=== PATIENT | female | born 1995 | race Caucasian/White ===

== ENCOUNTER 2017-11-01 17:03 | Emergency (ER) | payer MEDICAID ==
[2017-11-01 18:58] LABS: ABSOLUTE EOSINOPHILS # (AUTO) 0.1 10^3/uL (0.0-0.6); ABSOLUTE LYMPHOCYTES (AUTO) 2.5 10^3/uL (0.5-4.7); ABSOLUTE NEUT (AUTO) 9.5 10^3/uL (1.7-8.2); BASOPHILS % (AUTO) 0.3 % (0-2); EOSINOPHILS % (AUTO) 0.8 % (0-6); HEMATOCRIT 39.3 % (36.0-47.0); HEMOGLOBIN 13.3 g/dL (12.0-15.5); LYMPHOCYTES % (AUTO) 19.1 % (13-45); MEAN CORPUSCULAR HEMOGLOBIN 28.8 pg (27.0-33.4); MEAN CORPUSCULAR HGB CONC 33.9 g/dL (32.0-36.0); MEAN CORPUSCULAR VOLUME 85 fl (80-97); MONOCYTES % (AUTO) 7.9 % (3-13); PLATELET COUNT 318 10^3/uL (150-450); RED BLOOD COUNT 4.62 10^6/uL (3.72-5.28); RED CELL DISTRIBUTION WIDTH 13.2 % (11.5-14.0); SEGMENTED NEUTROPHILS % (AUTO) 71.9 % (42-78); TOTAL CELLS COUNTED % (AUTO) 100 %; WHITE BLOOD COUNT 13.1 10^3/uL (4.0-10.5)
[2017-11-01 19:06] LABS: APPEARANCE,URINE CLOUDY; BILIRUBIN,URINE NEGATIVE (NEGATIVE); COLOR,URINE YELLOW; GLUCOSE, URINE NEGATIVE (NEGATIVE); KETONES,URINE 20 mg/dL (NEGATIVE); LEUKOCYTE ESTERASE,URINE LARGE (NEGATIVE); NITRITE,URINE NEGATIVE (NEGATIVE); PROTEIN,URINE 30 mg/dL (NEGATIVE); URINE SPECIFIC GRAVITY 1.021; UROBILINOGEN,URINE NEGATIVE mg/dL (<2.0)
[2017-11-01] MEDS ORDERED: NORMAL SALINE 1000 ML 1,000 ML IV ONE (19:24)
[2017-11-01] MEDS ORDERED: ONDANSETRON HCL INJ/PF 4 MG/2 ML SDV IV ONE (19:25)
[2017-11-01] MEDS ORDERED: MORPHINE SULFATE 10 MG/ML INJ IV ONE (19:25)
[2017-11-01 19:26] LABS: ALANINE AMINOTRANSFERASE 21 U/L (9-52); ALBUMIN 4.2 g/dL (3.5-5.0); ALKALINE PHOSPHATASE 71 U/L (38-126); ANION GAP 12 (5-19); ASPARTATE AMINO TRANSFERASE 19 U/L (14-36); BILIRUBIN,DIRECT 0.3 mg/dL (0.0-0.4); BILIRUBIN,TOTAL 0.3 mg/dL (0.2-1.3); BLOOD UREA NITROGEN 5 mg/dL (7-20); CALCIUM 9.3 mg/dL (8.4-10.2); CARBON DIOXIDE 25 mmol/L (22-30); CHLORIDE 105 mmol/L (98-107); GLUCOSE 81 mg/dL (75-110); LIPASE 51.9 U/L (23-300); POTASSIUM 3.9 mmol/L (3.6-5.0); SODIUM 142.3 mmol/L (137-145); TOTAL PROTEIN 7.1 g/dL (6.3-8.2)
[2017-11-01] MEDS ORDERED: CEFTRIAXONE 2 GM/D5W RTU 2 GM/50 ML RTUPB IV ONE (19:27)
--- NOTE | 2017-11-01 19:27 | ER Document Report ---
ED General - General Chief Complaint: Abdominal Pain Stated Complaint: ABDOMINAL PAIN Time Seen by Provider: 11/01/17 18:10 Mode of Arrival: Ambulatory Information source: Patient Notes: This is a 22-year-old female 0 presented to the emergency room with progressively worsening right-sided abdominal pain for the past week. Patient states that she does have a history of lap patricio and was usual state of health until about a week ago when she started developing right-sided abdominal pain which seems to be upper moving down to the right lower side. She has been nauseated but denies vomiting. She denies fever. TRAVEL OUTSIDE OF THE [place] IN LAST 30 DAYS: No - HPI Onset: Last week Onset/Duration: Gradual Quality of pain: Dull Severity: Moderate Pain Level: 2 Associated symptoms: denies: Chest pain, Chills, Fever, Shortness of breath Exacerbated by: Denies Relieved by: Denies Similar symptoms previously: No Recently seen / treated by doctor: No - Related Data Allergies/Adverse Reactions: No Known Allergies Allergy (Verified 11/01/17 17:05) Past Medical History - General Information source: Patient - Social History Smoking Status: Current Every Day Smoker Cigarette use (# per day): Yes - Half pack per day Chew tobacco use (# tins/day): No Frequency of alcohol use: None Drug Abuse: None Lives with: Family Family History: None Patient has suicidal ideation: No Patient has homicidal ideation: No - Past Medical History Cardiac Medical History: Reports: None Pulmonary Medical History: Reports: None EENT Medical History: Reports: None Neurological Medical History: Reports: None Endocrine Medical History: Reports: None Renal/ Medical History: Reports: None. Denies: Hx Peritoneal Dialysis Malignancy Medical History: Reports: None GI Medical History: Reports: None Musculoskeletal Medical History: Reports None Skin Medical History: Reports None Psychiatric Medical History: Reports: Hx Depression Past Surgical History: Reports: Hx Cholecystectomy, Hx Thyroid Surgery, Hx Tonsillectomy Review of Systems - Review of Systems Constitutional: denies: Chills, Fever EENT: No symptoms reported Cardiovascular: denies: Chest pain, Palpitations, Heart racing, Orthopnea Respiratory: denies: Cough, Hemoptysis, Short of breath Gastrointestinal: Abdominal pain, Nausea, Vomiting Female Genitourinary: denies: Heavy/abnormal periods, Irregular period Musculoskeletal: No symptoms reported Skin: No symptoms reported Hematologic/Lymphatic: No symptoms reported Neurological/Psychological: No symptoms reported Physical Exam - Vital signs Vitals: Temp Pulse Resp BP Pulse Ox 99.4 F 114 H 24 H 139/89 H 100 11/01/17 17:08 11/01/17 17:08 11/01/17 17:08 11/01/17 17:08 11/01/17 17:08 Notes: Physical exam: GENERAL:-year-old female, alert and oriented 3, complaining of abdominal pain. HEAD: Atraumatic, normocephalic. EYES: Pupils equal round and reactive to light, extraocular movements intact, sclera anicteric, conjunctiva are normal. ENT: TMs normal, nares patent, oropharynx clear without exudates. Moist mucous membranes. NECK: Normal range of motion, supple without obvious mass or JVD. LUNGS: Breath sounds clear to auscultation bilaterally and equal. No wheezes rales or rhonchi. HEART: Regular rate and rhythm without murmurs, rubs or gallops. ABDOMEN: Soft, normoactive bowel sounds. She does have significant tenderness to palpation in the right side and right lower quadrant. There is no rebound. There is no obvious masses. Pelvic exam: His vaginal discharge which was sent for study, there is significant cervical motion tenderness and right adnexal tenderness. EXTREMITIES: Normal range of motion, no pitting or edema. No clubbing or cyanosis. NEUROLOGICAL: Cranial nerves II through XII grossly intact. Normal speech, moving all extremities. PSYCH: Normal mood, normal affect. SKIN: Warm, Dry, normal turgor, no rashes or lesions noted. Course - Re-evaluation Re-evalutation: 11/02/17 02:59 Note: Patient was treated with IV fluids, IV ceftriaxone (2 g), IV pain medicine. CT of the abdomen showed a normal appendix. Pelvic ultrasound showed normal pathology. There is no evidence of abscess. Patient was feeling better and tolerating p.o. She did prefer to go home (I did offer admission to her). She was given doxycycline orally in the ER and I will send her home with pain medicine, nausea medicine and doxycycline. 11/02/17 03:00 - Vital Signs Vital signs: Temp Pulse Resp BP Pulse Ox 99.4 F 114 H 24 H 139/89 H 100 11/01/17 17:08 11/01/17 17:08 11/01/17 17:08 11/01/17 17:08 11/01/17 17:08 - Laboratory Result Diagrams: 11/01/17 18:25 11/01/17 18:25 Laboratory results interpreted by me: 11/01/17 11/01/17 11/01/17 18:25 18:25 18:25 WBC 13.1 H Absolute Neutrophils 9.5 H BUN 5 L Urine Protein 30 H Urine Ketones 20 H Urine Blood MODERATE H Ur Leukocyte Esterase LARGE H Chlamydia DNA (PCR) N.gonorrhoeae DNA (PCR) 11/01/17 20:52 WBC Absolute Neutrophils BUN Urine Protein Urine Ketones Urine Blood Ur Leukocyte Esterase Chlamydia DNA (PCR) DETECTED H N.gonorrhoeae DNA (PCR) DETECTED H - Diagnostic Test Radiology reviewed: Image reviewed, Reports reviewed - CT of the abdomen shows normal appendix. Pelvic ultrasound shows normal pelvic anatomy Discharge - Discharge Clinical Impression: PID Condition: Stable Disposition: HOME, SELF-CARE Instructions: Abdominal Pain ([facility]), Pelvic Inflammatory Disease ([facility]) Additional Instructions: As we discussed, your general cultures showed that you were positive for gonorrhea and chlamydia. He received IV ceftriaxone in the emergency room. I want you to take doxycycline for the next 2 weeks. Take the Zofran for nausea. Take the Vicodin for pain. You can take Advil/Motrin for pain as well. Rest, drink plenty of fluids, advance diet slowly. Return to the emergency room for worsening pain or any concerns or getting worse. Follow-up with your primary care doctor/family doctor or sr. manager corporate communications when back home after treatment for repeat cultures. Prescriptions: Hydrocodone/Acetaminophen [Clark 5-325 mg Tablet] 1 tab PO Q6HP PRN #25 tablet PRN Reason: Doxycycline Hyclate 100 mg PO BID #24 capsule Ondansetron HCl [Zofran 4 mg Tablet] 1 - 2 tab PO Q4H PRN #10 tablet PRN Reason:
[2017-11-01 21:35] LABS: BACTERIA (WET MOUNT) 4+ BACTERIA SEEN; EPITHELIALS (WET MOUNT) 3+ EPITHELIALS SEEN; RBCS (WET MOUNT) RARE RBCS SEEN; T.VAGINALIS (WET MOUNT) NO TRICHOMONAS SEEN; WBCS (WET MOUNT) 4+ WBCS SEEN; YEAST (WET MOUNT) NO YEAST SEEN
--- NOTE | 2017-11-01 21:57 | RADIOLOGY REPORT (SQ) ---
EXAM DESCRIPTION: CT ABD/PELVIS WITH IV ONLY COMPLETED DATE/TIME: 11/01/2017 9:43 pm REASON FOR STUDY: rlq pain COMPARISON: None. TECHNIQUE: CT scan of the abdomen and pelvis performed using helical scanning technique with dynamic intravenous contrast injection. No oral contrast. Images reviewed with lung, soft tissue, and bone windows. Reconstructed coronal and sagittal MPR images reviewed. Delayed images for evaluation of the urinary system also acquired. All images stored on PACS. All CT scanners at this facility use dose modulation, iterative reconstruction, and/or weight based d osing when appropriate to reduce radiation dose to as low as reasonably achievable (ALARA). [facility]: Dose Right [facility]: CareDose [facility]: Dose Right [facility]: Teradose 4D [facility]: WhereNet CONTRAST TYPE AND DOSE: 100 mL Omnipaque 350- low osmolar. RENAL FUNCTION: BUN 5 creatinine 0.61 RADIATION DOSE: . LIMITATIONS: None. FINDINGS: LOWER CHEST: No significant findings. No nodules or infiltrates. LIVER: Normal size. No masses. No dilated ducts. SPLEEN: Normal size. No focal lesions. PANCREAS: No masses. No significant calcifications. No adjacent inflammation or peripancreatic fluid collections. Pancreatic duct not dilated. GALLBLADDER: No identified stones by CT criteria. No inflammatory changes to suggest cholecystitis. ADRENAL GLANDS: No significant masses or asymmetry. RIGHT KIDNEY AND URETER: No solid masses. No significant calcifications. No hydronephrosis or hyd roureter. LEFT KIDNEY AND URETER: No solid masses. No significant calcifications. No hydronephrosis or hydr oureter. AORTA AND VESSELS: No aneurysm. No dissection. Renal arteries, SMA, celiac without stenosis. RETROPERITONEUM: No retroperitoneal adenopathy, hemorrhage or masses. BOWEL AND PERITONEAL CAVITY: No masses or inflammatory changes. No free fluid or peritoneal masses. APPENDIX: Normal. PELVIS: There appears to be a small ovarian cyst on each side. No free fluid in the pelvis. No mass es. Urinary bladder is normal. ABDOMINAL WALL: There is a prominent inguinal lymph node on the right. There is mild stranding in th e fat in the right groin. BONES: No significant or acute findings. OTHER: No other significant finding. IMPRESSION: 1. No acute findings in the abdomen or the pelvis. There does appear to be a small ova grazyna cyst on each side. 2. There is a prominent right inguinal node and there are mild inflammatory changes in the fat in th e right groin around this node. TECHNICAL DOCUMENTATION: JOB ID: [id number] Quality ID # [id number]: Final reports with documentation of one or more dose reduction techniques (e.g., Au tomated exposure control, adjustment of the mA and/or kV according to patient size, use of iterative reconstruction technique) 2010 [employer]- All Rights Reserved Reading location - IP/workstation name: [email or web address]
[2017-11-01] MEDS ORDERED: HYDROMORPHONE HCL INJ/PF 2 MG/ML AMPULE IV ONE (22:24)
[2017-11-01 23:01] LABS: CHLAM PCR DETECTED (NOT DETECT); GON PCR DETECTED (NOT DETECT)
--- NOTE | 2017-11-02 00:23 | RADIOLOGY REPORT (SQ) ---
EXAM DESCRIPTION: US TRANSVAGINAL COMPLETED DATE/TME: 11/01/2017 22:23 CLINICAL HISTORY: 22 years, Female, right pelvic pain COMPARISON: None. TECHNIQUE: Complete pelvic ultrasound with transvaginal imaging. Limited color and spectral Doppler imaging of the ovaries. FINDINGS: Uterus measures 6.5 x 4.6 x 3.3 cm. Endometrial thickness of 0.3 cm. Cervical length of 2.1 cm. The cervix is closed. No myometrial abnormalities. No large adnexal masses. No free pelvic fluid. The right ovary measures 3.7 x 2.7 x 2.4 cm. The left ovary measures 3.1 x 1.8 x 1.8 cm. No abnormalities identified. Limited color and spectral Doppler imaging demonstrates flow within the ovaries bilaterally. IMPRESSION: 1. No sonographic abnormality identified in the pelvis. 2011 [email or web address]- All Rights Reserved
[2017-11-02] MEDS ORDERED: DOXYCYCLINE HYCLATE 100 MG TABLET PO ONE (00:35)
[2017-11-02] MEDS ORDERED: HYDROMORPHONE HCL INJ/PF 2 MG/ML AMPULE IV ONE (00:35)
[2017-11-02 03:22] VITALS: BP 113/72
== END 2017-11-02 03:22 | disposition home or self-care (01) ==
LOC: ER 17:03
DX: N73.9 Female pelvic inflammatory disease, unspecified (principal); R11.2 Nausea with vomiting, unspecified; F17.210 Nicotine dependence, cigarettes, uncomplicated
CPT/HCPCS: 96376; 99284; 96375; 96365; 36415; 87086; 87210; 83690; 84703; 85025; 87088; 80053; 81001; 87491; 87591; 76830; 93976; 74177; J2270; J1170 ×2; J2405; J7030; J0696